=== PATIENT | male | born 1990 | race Caucasian/White ===

== ENCOUNTER 2022-01-16 14:38 | Inpatient (IN) | payer OTHER ==
[2022-01-16 17:17] VITALS: BMI 17.5
[2022-01-16] MEDS ORDERED: P-EPHED 60MG/TRIPROLIDI 2.5MG TABLET PO PRN (18:47)
[2022-01-16] MEDS ORDERED: MAGNESIUM HYDROX 2400MG/30ML ORAL SUSPENSION 30 ML CUP PO PRN (18:47)
[2022-01-16] MEDS ORDERED: ACETAMINOPHEN 325 MG TABLET (FP) PO PRN ×2 (18:47)
[2022-01-16] MEDS ORDERED: LOPERAMIDE HCL 2 MG CAPSULE PO PRN (18:47)
[2022-01-16] MEDS ORDERED: MAGNESIUM CITRATE 300 ML BOTTLE PO PRN (18:47)
[2022-01-16] MEDS ORDERED: MELATONIN 5 MG TABLETS PO PRN (18:47)
[2022-01-16] MEDS ORDERED: BISMUTH SUBSALICYLATE 524 MG/30 ML PO PRN (18:47)
[2022-01-16] MEDS ORDERED: MENTHOL/PHENOL 1 EACH UD MM PRN (18:47)
[2022-01-16] MEDS ORDERED: ONDANSETRON *ODT* 4 MG TABLET SL PRN (18:47)
[2022-01-16] MEDS ORDERED: MAG HYDROX/AL HYDROX/SIMETH 30 ML UNIT-DOSE CUP PO PRN (18:47)
[2022-01-16] MEDS ORDERED: IBUPROFEN 400 MG TABLET (FP) PO PRN (18:47)
[2022-01-16] MEDS ORDERED: methaDONE HCL 10 MG TABLET (FOR DETOX USE ONLY) PO ONE (18:49)
[2022-01-16] MEDS ORDERED: methaDONE HCL 10 MG TABLET (FOR DETOX USE ONLY) ONE (19:36)
[2022-01-16] MEDS: THIAMINE HCL 100 MG TABLET (FP) PO SCH (23:58)
[2022-01-17] MEDS: cloNIDine HCL 0.1 MG TABLET PO PRN ×2 (02:39→23:23)
[2022-01-17] MEDS: METHOCARBAMOL 500 MG TABLET PO PRN ×4 (02:39→23:45)
[2022-01-17] MEDS ORDERED: methaDONE HCL 10 MG TABLET (FOR DETOX USE ONLY) ONE (09:42)
[2022-01-17] MEDS: PRENATAL VITAMINS W/ FOLIC ACID TABLET (FP) PO SCH (10:13)
[2022-01-17] MEDS: hydrOXYzine PAMOATE 25 MG CAPSULE (FP) PO PRN ×3 (10:13→22:38)
[2022-01-17 11:37] LABS: HEMATOCRIT 36.1 % (35.4-49); HEMOGLOBIN 12.5 GM/dL (11.7-16.9); MCH 30.8 pg (25.7-33.7); MCHC 34.8 g/dl (32.0-35.9); MEAN CELL VOLUME 88.6 fl (80-96); PLATELET COUNT 210 10^3/uL (134-434); RBC 4.07 M/mm3 (4.00-5.60); RDW 13.3 % (11.9-15.9)
[2022-01-17 12:43] LABS: CALCIUM 8.6 mg/dL (8.5-10.1)
[2022-01-17 12:44] LABS: ALBUMIN 3.7 g/dl (3.4-5.0); BLOOD UREA NITROGEN 11.3 mg/dL (7-18)
[2022-01-17 12:47] LABS: CREATININE 0.8 mg/dL (0.55-1.3)
[2022-01-17 12:48] LABS: BILIRUBIN,TOTAL 0.3 mg/dL (0.2-1); TOT PROT 6.3 g/dl (6.4-8.2)
[2022-01-17] MEDS: THIAMINE HCL 100 MG TABLET (FP) PO SCH (22:38)
[2022-01-17] MEDS: NICOTINE POLACRILEX 2 MG GUM BUC PRN (23:46)
[2022-01-18] MEDS: hydrOXYzine PAMOATE 25 MG CAPSULE (FP) PO PRN ×4 (03:18→22:21)
[2022-01-18] MEDS: METHOCARBAMOL 500 MG TABLET PO PRN ×2 (06:25→22:20)
[2022-01-18] MEDS ORDERED: methaDONE HCL 10 MG TABLET (FOR DETOX USE ONLY) PO ONE (10:00)
[2022-01-18] MEDS: PRENATAL VITAMINS W/ FOLIC ACID TABLET (FP) PO SCH (10:06)
[2022-01-18] MEDS ORDERED: MELATONIN 5 MG TABLETS PO SCH (22:00)
[2022-01-18] MEDS: THIAMINE HCL 100 MG TABLET (FP) PO SCH (22:20)
[2022-01-19] MEDS: hydrOXYzine PAMOATE 25 MG CAPSULE (FP) PO PRN ×3 (06:25→22:07)
[2022-01-19] MEDS: METHOCARBAMOL 500 MG TABLET PO PRN (06:25)
[2022-01-19] MEDS ORDERED: methaDONE HCL 10 MG TABLET (FOR DETOX USE ONLY) ONE (09:30)
[2022-01-19] MEDS: PRENATAL VITAMINS W/ FOLIC ACID TABLET (FP) PO SCH (10:18)
[2022-01-19] MEDS: NICOTINE POLACRILEX 2 MG GUM BUC PRN (10:20)
[2022-01-19] MEDS: THIAMINE HCL 100 MG TABLET (FP) PO SCH (22:07)
[2022-01-19] MEDS: SUVOREXANT 10 MG TABLET PO PRN (22:07)
[2022-01-20] MEDS ORDERED: methaDONE HCL 10 MG TABLET (FOR DETOX USE ONLY) PO ONE (10:00)
[2022-01-20] MEDS: PRENATAL VITAMINS W/ FOLIC ACID TABLET (FP) PO SCH (10:06)
[2022-01-20] MEDS: hydrOXYzine PAMOATE 25 MG CAPSULE (FP) PO PRN ×2 (10:07→22:22)
[2022-01-20] MEDS: METHOCARBAMOL 500 MG TABLET PO PRN ×2 (10:07→22:22)
[2022-01-20] MEDS: SUVOREXANT 10 MG TABLET PO PRN (22:21)
[2022-01-20] MEDS: THIAMINE HCL 100 MG TABLET (FP) PO SCH (22:22)
[2022-01-21 07:24] VITALS: BP 125/53; PULSE 83; TEMP 98.4
[2022-01-21 08:08] LABS: SARS-CoV-2 NAA Not Detected (Not Detected)
[2022-01-21] MEDS: PRENATAL VITAMINS W/ FOLIC ACID TABLET (FP) PO SCH (09:39)
[2022-01-21] MEDS: hydrOXYzine PAMOATE 25 MG CAPSULE (FP) PO PRN (09:39)
== END 2022-01-21 09:50 | disposition home or self-care (01) | DRG 773 ==
LOC: YASAS 14:38 → Y6N 20:21
PROVIDERS: ADMIT Allergy & Immunology; ATTEND Allergy & Immunology
PROC: HZ2ZZZZ Detoxification Services for Substance Abuse Treatment (ICD-10-PCS; principal; 2022-01-16)
DX: F11.23 Opioid dependence with withdrawal (principal); F12.20 Cannabis dependence, uncomplicated; F17.210 Nicotine dependence, cigarettes, uncomplicated; F19.282 Other psychoactive substance dependence with psychoactive substance-induced sleep disorder; F31.9 Bipolar disorder, unspecified; F39 Unspecified mood [affective] disorder; Z62.810 Personal history of physical and sexual abuse in childhood; Z56.0 Unemployment, unspecified; Z59.01 Sheltered homelessness
CPT/HCPCS: 36415; 71045-TC-FY; 80053; 85027; 86780; C9803-CS; J0735; U0003; U0005